=== PATIENT | female | born 1960 | race African-American/Black ===

== ENCOUNTER 2016-12-10 18:28 | Emergency (ER) | payer MEDICAID ==
[~2016-12-10] VITALS: Ht 175.3 cm; Wt 97.0 kg
[~2016-12-10 18:28] MED LIST: ALBUTEROL; POTASSIUM; PRED10TA; QVAR; REGLAN
[2016-12-10] MEDS ORDERED: KETOROLAC 60MG/2ML VIAL IM ONE (19:00)
[2016-12-10] MEDS ORDERED: IPRATROPIUM/ALBUTEROL 0.5-3(2.5)MG/3ML NEB HHN ONE (19:00)
[2016-12-10 21:18] VITALS: BP 136/70
== END 2016-12-10 21:26 | disposition home or self-care (01) ==
LOC: ER 19:44
DX: J45.909 Unspecified asthma, uncomplicated (principal); J20.9 Acute bronchitis, unspecified; I10 Essential (primary) hypertension; Z91.041 Radiographic dye allergy status; Z98.890 Other specified postprocedural states; Z79.899 Other long term (current) drug therapy
CPT/HCPCS: 71010; 94640; 96372; 99283; J1885; J7620

== ENCOUNTER 2017-06-24 04:01 | Inpatient (IN) | payer MEDICAID ==
[~2017-06-24] VITALS: Ht 175.3 cm; Wt 88.0 kg
[2017-06-24] MEDS ORDERED: ACETAMINOPHEN WITH CODEINE 300/30MG TABLET PO STA (05:14)
[2017-06-24] MEDS ORDERED: NITROGLYCERIN OINT 1GM/INCH UDPKT TD ONE (05:15)
[2017-06-24] MEDS ORDERED: ASPIRIN 81MG TABLET PO ONE (05:15)
[2017-06-24 06:03] LABS: EOSINOPHILS % 2.4 % (0.0-5.0); HEMATOCRIT. 32.7 % (36.0-48.0); HEMOGLOBIN. 10.7 g/dL (12.0-16.0); LYMPHOCYTES % 44.4 % (20.0-50.0); MEAN CORPUSCULAR HEMOGLOBIN 22.4 pg (28.0-32.0); MEAN CORPUSCULAR VOLUME 68.4 fL (81.0-99.0); MONOCYTES % 11.6 % (2.0-8.0); NEUTROPHILS % 40.6 % (40.0-76.0); PLATELET 239 x1000/uL (130-400); RED BLOOD CELL COUNT 4.77 mill/uL (4.2-5.4); RED CELL DISTRIBUTION WIDTH 15.3 % (11.6-14.6)
[2017-06-24 06:12] LABS: INR 1.1
[2017-06-24 06:14] LABS: CARBON DIOXIDE 28 mEq/L (21-32); CHLORIDE 109 mEq/L (98-107); ETHANOL BLOOD < 10 mg/dL; TROPONIN I < 0.02 ng/mL (0.00-0.04)
[2017-06-24 06:36] LABS: *AMPHETAMINES SCREEN URINE NEGATIVE (NEGATIVE); *BARBITURATES SCREEN URINE NEGATIVE (NEGATIVE); *BENZODIAZEPINES SCREEN URINE NEGATIVE (NEGATIVE); *COCAINE SCREEN URINE NEGATIVE (NEGATIVE); CANNABINOID URINE SCREEN NEGATIVE (NEGATIVE); METHADONE URINE SCREEN NEGATIVE (NEGATIVE); OPIATES URINE SCREEN NEGATIVE (NEGATIVE); PHENCYCLIDINE URINE SCREEN NEGATIVE (NEGATIVE)
[2017-06-24 08:00] VITALS: BP 123/60
[2017-06-24 08:35] VITALS: BP 123/63
[2017-06-24] MEDS ORDERED: ACETAMINOPHEN 650MG/20.3ML UDC PO PRN (09:15)
[2017-06-24] MEDS ORDERED: ASPIRIN 81MG TABLET PO SCH (09:15)
[2017-06-24] MEDS: ACETAMINOPHEN 325MG TABLET PO PRN ×2 (09:48→13:28)
[2017-06-24] MEDS: ENOXAPARIN 40MG/0.4ML SYR SUBCUT SCH (09:49)
[2017-06-24 10:34] VITALS: BP 123/60
[2017-06-24 12:00] VITALS: BP 133/75
[2017-06-24 16:00] VITALS: BP 137/68
[2017-06-24 20:55] VITALS: BP 126/68
[2017-06-25 00:24] VITALS: BP 126/67
[2017-06-25 04:00] VITALS: BP 127/74
[2017-06-25 08:00] VITALS: BP 129/70
[2017-06-25] MEDS: ACETAMINOPHEN 325MG TABLET PO PRN ×2 (08:52→17:27)
[2017-06-25] MEDS: ENOXAPARIN 40MG/0.4ML SYR SUBCUT SCH (08:52)
[2017-06-25] MEDS: ASPIRIN 81MG TABLET PO SCH (08:52)
[2017-06-25 11:58] VITALS: BP 142/77
[2017-06-25 16:00] VITALS: BP 147/76
[2017-06-25 20:00] VITALS: BP 136/81
[2017-06-25] MEDS ORDERED: ATORVASTATIN CALCIUM 20MG TABLET PO SCH (21:00)
[2017-06-26] VITALS: BP 107/51
[2017-06-26 04:00] VITALS: BP 113/56
[2017-06-26 05:53] LABS: HEMATOCRIT. 34.8 % (36.0-48.0); HEMOGLOBIN. 11.4 g/dL (12.0-16.0); MEAN CORPUSCULAR HEMOGLOBIN 22.5 pg (28.0-32.0); MEAN CORPUSCULAR VOLUME 68.4 fL (81.0-99.0); MEAN PLATELET VOLUME 8.4 fl (7.4-10.4); PLATELET 254 x1000/uL (130-400); RED BLOOD CELL COUNT 5.09 mill/uL (4.2-5.4); RED CELL DISTRIBUTION WIDTH 15.5 % (11.6-14.6)
[2017-06-26] MEDS ORDERED: REGADENOSON 0.4 MG/5 ML IV NR (07:15)
[2017-06-26 08:00] VITALS: BP 103/46
[2017-06-26 08:01] LABS: CARBON DIOXIDE 29 mEq/L (21-32); CHLORIDE 107 mEq/L (98-107)
[2017-06-26] MEDS: ENOXAPARIN 40MG/0.4ML SYR SUBCUT SCH (08:13)
[2017-06-26] MEDS: ASPIRIN 81MG TABLET PO SCH (09:00)
[2017-06-26] MEDS: ACETAMINOPHEN 325MG TABLET PO PRN ×2 (11:30→15:03)
[2017-06-26] MEDS ORDERED: REGADENOSON 0.4 MG/5 ML IV ONE (11:37)
[2017-06-26 15:44] VITALS: BP 125/74
[2017-06-26 16:39] LABS: PLATELET ESTIMATE NORMAL
== END 2017-06-26 16:25 | disposition home or self-care (01) | DRG 203 ==
LOC: ER 04:01 → 6WST 05:27 → ENRESERV 07:13
PROVIDERS: ADMIT Internal Medicine; ATTEND Internal Medicine
DX: M94.0 Chondrocostal junction syndrome [Tietze] (principal); E83.51 Hypocalcemia; I10 Essential (primary) hypertension; E78.5 Hyperlipidemia, unspecified; D50.9 Iron deficiency anemia, unspecified; J45.909 Unspecified asthma, uncomplicated; Z91.041 Radiographic dye allergy status; Z88.8 Allergy status to other drugs, medicaments and biological substances; Z79.899 Other long term (current) drug therapy; Z98.891 History of uterine scar from previous surgery; Z91.018 Allergy to other foods; Z91.010 Allergy to peanuts
CPT/HCPCS: 36415; 71010; 78452; 78582; 80048; 80053; 80061; 80305; 83605; 83690; 83735; 83880; 84484; 85025; 85379; 85610; 93005; 93017; 93306; 93970; 99285; A9500; A9558; G0482; J1650; J2785

== ENCOUNTER 2019-10-14 14:07 | Emergency (ER) | payer MEDICAID ==
[~2019-10-14] VITALS: Ht 175.3 cm; Wt 102.0 kg
[~2019-10-14 14:07] MED LIST changes: -POTASSIUM; -PRED10TA
[2019-10-14 14:15] VITALS: BP 174/87
[2019-10-14] MEDS ORDERED: PREDNISONE 20MG TABLET PO STA (14:35)
[2019-10-14] MEDS ORDERED: ALBUTEROL (0.083%) 2.5MG/3ML NEB HHN STA ×2 (14:35→15:58)
[2019-10-14] MEDS ORDERED: IPRATROPIUM BROMIDE (0.02%) 0.5MG/2.5ML NEB HHN STA ×2 (14:35→15:58)
== END 2019-10-14 17:14 | disposition home or self-care (01) ==
LOC: ER 14:07
DX: J45.901 Unspecified asthma with (acute) exacerbation (principal); I10 Essential (primary) hypertension; Z91.018 Allergy to other foods; Z91.010 Allergy to peanuts; Z88.8 Allergy status to other drugs, medicaments and biological substances; Z98.890 Other specified postprocedural states
CPT/HCPCS: 71046; 94640; 99284; J7512; J7611; Z7610

== ENCOUNTER 2021-09-08 13:05 | Emergency (ER) | payer MEDICAID, OTHER ==
[~2021-09-08] VITALS: Ht 170.2 cm; Wt 75.0 kg
[2021-09-08] MEDS ORDERED: SODIUM CHLORIDE 0.9% 1,000 ML IV ONE (13:45)
[2021-09-08 15:02] LABS: BASOPHILS % 1.4 % (0.0-2.0); EOSINOPHILS % 0.5 % (0.0-5.0); HEMATOCRIT. 36.6 % (36.0-48.0); LYMPHOCYTES % 33.2 % (20.0-50.0); MEAN CORPUSCULAR HEMOGLOBIN 22.3 pg (28.0-32.0); MEAN PLATELET VOLUME 8.1 fl (7.4-10.4); MONOCYTES % 9.7 % (2.0-8.0); NEUTROPHILS % 55.2 % (40.0-76.0); PLATELET 304 x1000/uL (130-400); RED BLOOD CELL COUNT 5.37 mill/uL (4.2-5.4); RED CELL DISTRIBUTION WIDTH 15.3 % (11.6-14.6)
[2021-09-08 15:09] LABS: CHLORIDE 107 mEq/L (98-107)
[2021-09-08 15:19] LABS: CREATINE KINASE 149 IU/L (26-192)
[2021-09-08 15:32] LABS: PLATELET ESTIMATE NORMAL
[2021-09-08] MEDS ORDERED: KETOROLAC 15MG/ML VIAL IV NR (17:00)
[2021-09-08] MEDS ORDERED: POTASSIUM CHLORIDE 20MEQ TABLET SR PO NR (17:00)
[2021-09-08] MEDS ORDERED: ACETAMINOPHEN 325MG TABLET PO ONE (19:00)
[2021-09-08] MEDS ORDERED: LORAZEPAM 0.5MG TABLET PO ONE (21:45)
[2021-09-08 21:59] LABS: CLARITY URINE CLEAR (CLEAR); COLOR URINE YELLOW (YELLOW); KETONES URINE NEGATIVE (NEGATIVE); LEUKOCYTE ESTERASE URINE NEGATIVE (NEGATIVE); NITRITE URINE NEGATIVE (NEGATIVE); OCCULT BLOOD URINE NEGATIVE (NEGATIVE); PH URINE 6.5 (4.5-8.0); PROTEIN URINE NEGATIVE (NEGATIVE); UROBILINOGEN URINE 0.2 E.U./dL (0.2-1.0)
[2021-09-08] MEDS ORDERED: POTA20TA82 PO (22:46)
[2021-09-08] MEDS ORDERED: ONDA4TAB5 MT (22:46)
[2021-09-08 23:16] VITALS: BP 136/63
== END 2021-09-08 23:17 | disposition home or self-care (01) ==
LOC: ER 13:05
DX: R10.9 Unspecified abdominal pain (principal); E87.6 Hypokalemia; R07.89 Other chest pain; K76.89 Other specified diseases of liver
CPT/HCPCS: 36415; 71045; 74176; 80053; 81003; 82550; 84484; 85025; 96361; 96374; 99285; J1885; J7030

== ENCOUNTER 2023-10-12 14:35 | Emergency (ER) | payer OTHER, MEDICAID ==
[~2023-10-12] VITALS: Ht 175.3 cm; Wt 104.0 kg
[~2023-10-12 14:35] MED LIST changes: +ONDA4TAB5 MT; +POTA-205 PO
[2023-10-12 14:41] VITALS: O2SAT 100
[2023-10-12 16:00] VITALS: TEMP 98.9
[2023-10-12 17:24] LABS: HEMATOCRIT. 33.4 % (36.0-48.0); HEMOGLOBIN. 10.8 g/dL (12.0-16.0); MEAN CORPUSCULAR HEMOGLOBIN 22.5 pg (28.0-32.0); MEAN CORPUSCULAR HGB CONC 32.4 g/dL (31.0-37.0); MEAN CORPUSCULAR VOLUME 69.2 fL (81.0-99.0); MEAN PLATELET VOLUME 8.3 fl (7.4-10.4); PLATELET 265 x1000/uL (130-400); RED BLOOD CELL COUNT 4.82 mill/uL (4.2-5.4)
[2023-10-12 17:26] LABS: DIFFERENTIAL COMMENT 1
[2023-10-12 17:45] LABS: PROTHROMBIN TIME 11.1 sec (9.6-11.0)
[2023-10-12 17:48] LABS: ALANINE AMINOTRANSFERASE 26 IU/L (10-49); ALBUMIN 3.7 g/dL (3.2-4.8); ASPARTATE AMINOTRANSFERASE 31 IU/L (<34); BILIRUBIN TOTAL 0.5 mg/dL (0.1-1.0); CALCIUM 8.6 mg/dL (8.7-10.4); CARBON DIOXIDE 24 mEq/L (21-32); CHLORIDE 110 mEq/L (98-107); CREATININE 0.9 mg/dL (0.6-1.0); GLUCOSE 81 mg/dL (70-105); POTASSIUM 3.9 mEq/L (3.5-5.1); PROTEIN TOTAL 6.8 g/dL (6.0-8.3); SODIUM 142 mEq/L (136-145); UREA NITROGEN BLOOD 15 mg/dL (9-23)
[2023-10-12 17:49] LABS: TROPONIN I HIGH SENSITIVITY < 4 ng/L (3.0-34)
[2023-10-12 18:14] LABS: ANISOCYTOSIS 1+; HYPOCHROMASIA 1+; MICROCYTOSIS 3+; PLATELET ESTIMATE NORMAL
[2023-10-12] MEDS ORDERED: LOSA100T33 MT (19:37)
[2023-10-12 20:57] VITALS: BP 161/62; PULSE 62; RESP 14
== END 2023-10-12 21:02 | disposition home or self-care (01) ==
LOC: ER 14:35
DX: R07.89 Other chest pain (principal); J45.909 Unspecified asthma, uncomplicated; I10 Essential (primary) hypertension; Z91.018 Allergy to other foods; Z91.041 Radiographic dye allergy status; Z88.8 Allergy status to other drugs, medicaments and biological substances; Z91.010 Allergy to peanuts
CPT/HCPCS: 36415; 71045; 80053; 83880; 84484; 85025; 93005; 99285

== ENCOUNTER 2024-05-31 22:43 | Emergency (ER) | payer MEDICAID, OTHER ==
[~2024-05-31] VITALS: Ht 175.3 cm; Wt 105.0 kg
[~2024-05-31 22:43] MED LIST changes: +LOSA100T33 MT
[2024-05-31 23:08] VITALS: BP 152/70; PULSE 80; RESP 20; TEMP 98.4; O2SAT 100
[2024-06-01] MEDS ORDERED: LIDOCAINE HCL/PF 1% 10 MG/ML 5ML VIAL INFIL ONE
[2024-06-01] MEDS ORDERED: BACITRACIN ZINC OINT UDPKT TOP ONE
[2024-06-01] MEDS: TETANUS, DIPHTHERIA, PERTUSSIS VAC/PF 0.5ML (>10YR OLD) IM ONE
[2024-06-01] MEDS: BACITRACIN ZINC OINT UDPKT TOP NR (00:30)
[2024-06-01] MEDS: LIDOCAINE HCL/PF 1% 10 MG/ML 5ML VIAL INFIL NR (00:30)
[2024-06-01] MEDS: ACETAMINOPHEN 325MG TABLET PO ONE (01:34)
== END 2024-06-01 01:34 | disposition home or self-care (01) ==
LOC: ER 22:43
DX: S51.012A Laceration without foreign body of left elbow, initial encounter (principal); J45.909 Unspecified asthma, uncomplicated; I10 Essential (primary) hypertension; Z91.018 Allergy to other foods; X58.XXXA Exposure to other specified factors, initial encounter; Y93.89 Activity, other specified; Y92.89 Other specified places as the place of occurrence of the external cause; Y99.8 Other external cause status
CPT/HCPCS: 99283; 12001; 90715; 90471; J3490

== ENCOUNTER 2024-06-28 15:50 | Emergency (ER) | payer OTHER ==
[~2024-06-28] VITALS: Ht 175.3 cm; Wt 104.3 kg
[2024-06-28] MEDS: DEXAMETHASONE 10 MG/ML VIAL IM ONE (16:27)
[2024-06-28 16:31] VITALS: PULSE 74; RESP 24; O2SAT 99
[2024-06-28] MEDS: IPRATROPIUM/ALBUTEROL 0.5-3(2.5)MG/3ML NEB HHN ONE (16:31)
[2024-06-28] MEDS ORDERED: AZIT250T12 MT (17:03)
[2024-06-28] MEDS ORDERED: PRED5TAB48 MT (17:03)
[2024-06-28] MEDS ORDERED: ALBU2.5V13 NEB (17:03)
[2024-06-28 17:18] VITALS: BP 147/84; PULSE 78; RESP 20; TEMP 36.89184; O2SAT 99
== END 2024-06-28 17:19 | disposition home or self-care (01) ==
LOC: ER 15:50
DX: J45.901 Unspecified asthma with (acute) exacerbation (principal); J18.9 Pneumonia, unspecified organism; I10 Essential (primary) hypertension; Z79.899 Other long term (current) drug therapy; Z91.018 Allergy to other foods; Z88.8 Allergy status to other drugs, medicaments and biological substances; Z88.6 Allergy status to analgesic agent; Z91.010 Allergy to peanuts; Z91.048 Other nonmedicinal substance allergy status
CPT/HCPCS: 99283; 71045; 94640; 96372; J1100